=== PATIENT | male | born 1990 | race Caucasian/White ===

== ENCOUNTER 2023-05-27 18:12 | Emergency (ER) | payer OTHER ==
[~2023-05-27] VITALS: Ht 177.8 cm; Wt 56.7 kg
[~2023-05-27 18:12] MED LIST: BACTRIM DS 8001 TA1 PO; CEPHALEXIN500 M1 PO; NORCO 5-325 TA1 EACH PO
[2023-05-27] MEDS ORDERED: VIBRAMYCIN100 MG PO (19:11)
== END 2023-05-27 19:34 | disposition home or self-care (01) ==
LOC: ED 18:12
DX: L73.2 Hidradenitis suppurativa (principal); Z98.890 Other specified postprocedural states